=== PATIENT | female | born 1965 | race Caucasian/White ===

== ENCOUNTER 2016-10-02 22:45 | Inpatient (IN) | payer OTHER ==
[~2016-10-02] VITALS: Ht 170.2 cm; Wt 76.0 kg
--- NOTE | 2016-10-02 22:48 | NUR ---
YUNIOR RAMSEY. TAKEN TO BED 1
[2016-10-02 23:00] VITALS: BP 145/102
--- NOTE | 2016-10-02 23:13 | NUR ---
PATIENT IGGY PRESENTS TO ED WITH AH . PT STATES SHE HAS NO DESIRE TO AND HAS A HX OF HEP C, CIRRHOSIS, AND DM. PT REPORTS BEING IN REHAB X3WKS FOR ETOH AND METH . DENIES N/V/D; SKIN IS PINK/WARM/DRY; AAOX4 WITH EVEN AND STEADY GAIT; LUNGS CLEAR BL; HR EVEN AND REGULAR; PT DENIES ANY FEVER, CP, SOB, OR COUGH AT THIS TIME; PATIENT STATES PAIN OF 8/10 AT THIS TIME; VSS; PATIENT POSITIONED FOR COMFORT; HOB ELEVATED; BEDRAILS UP X2; BED DOWN. ER MD MADE AWARE OF PT STATUS.
--- NOTE | 2016-10-02 23:20 | NUR ---
Dr. Michaud evaluating patient at bedside.
[2016-10-02] MEDS ORDERED: LORazepam 2 MG/ML VIAL IVP ONE (23:35)
[2016-10-02] MEDS ORDERED: MULTIVITAMIN-12 10 ML, THIAMINE 100 MG, MAGNESIUM SULFATE 50% 2,000 MG, FOLIC ACID 5 MG... IV ONE (23:35)
[2016-10-02] MEDS ORDERED: THIAMINE 200 MG/2 ML VIAL ONE (23:45)
[2016-10-02] MEDS ORDERED: MAGNESIUM SULFATE 50% 1000 MG/2 ML VIAL IV ONE (23:45)
[2016-10-02] MEDS ORDERED: FOLIC ACID 5 MG/ML SYR ONE (23:45)
[2016-10-02] MEDS ORDERED: MULTIVITAMIN-12 10 ML VIAL IV ONE (23:45)
[2016-10-03] VITALS (12 sets, daily range): BP systolic 130–180; BP diastolic 75–113
[2016-10-03] MEDS ORDERED: ONDANSETRON 4 MG/2 ML VIAL IVP PRN ×2 (00:10→08:50)
--- NOTE | 2016-10-03 00:28 | NUR ---
X-Ray at bedside.
[2016-10-03] MEDS ORDERED: LACTULOSE10 GM/15 M PO (00:38)
[2016-10-03] MEDS ORDERED: GABAPENTIN300 M3 PO (00:38)
[2016-10-03] MEDS ORDERED: TRAZODONE150 M1 PO (00:38)
[2016-10-03] MEDS ORDERED: MULTI-VITAMIN1 EACH PO (00:38)
[2016-10-03] MEDS ORDERED: B COMPLETE1 EACH PO (00:38)
[2016-10-03] MEDS ORDERED: ECHINACEA HERB380 MG PO (00:38)
--- NOTE | 2016-10-03 00:56 | NUR ---
TRANSPORT HELD VIA HOUSE SUP DUE TO ICU ON-CALL NURSE NOT PRESENT YET. SPOKE WITH ICU NURSE WHO STATED THE ON-CALL NURSE WOULD CALL WHEN SHE HAS ARRIVED
--- NOTE | 2016-10-03 01:40 | NUR ---
PATIENT NOTED TO HAVE REDNESS ON RIGHT KNEE AND SLIGHT BRUISING ON RIGHT LATERAL LEGT JUST A LITTLE ABOVE THE KNEE, ASKED PATIENT HOW DID SHE OBTAINED ABRASION ON LEFT KNEE, PATIENT STATED "I DONT KNOW".
--- NOTE | 2016-10-03 01:40 | NUR ---
PATIENT ADMITTED FROM ED FOR ALCOHOL WITHDRAWAL. PATIENT IS AWAKE, ALERT, KNOWS HER NAME BUT NOTICE TALKING TO SOMEBODY NOT PRESENT AT BEDSIDE. SR ON THE MONITOR, ON ROOM AIR, RESPIRATIONS NORMAL, WITH IV SITE ON LEFT WRIST G#22, ON BANANA BAG AT 250 MLS/HR. SKIN ASSESSMENT DONE AND HAS ABRASION ON LEFT KNEE. PATIENT NOTED ANXIOUS, STATING SHE WANTS TO GO BACK HOME AND LIVES [place] WITH [place]IM[place]. TRIED TO DIVERT PATIENT'S ATTENTION BY TURNING ON TV FOR HER TO WATCH BUT PATIENT TRIED TO GET OUT OF BED, SECURITY CALLED FOR ASSISTANCE.
--- NOTE | 2016-10-03 01:42 | NUR ---
Patient will be admitted to care of DR. PRATER. Admited to ICU. Will go to room 5. Belongings list completed. Report to BRET VALLE. TRANSFER OF CARE AT THIS TIME
[2016-10-03] MEDS: LORazepam 2 MG/ML VIAL IVP PRN ×9 (02:10→21:02)
--- NOTE | 2016-10-03 02:10 | NUR ---
PATIENT CALLING OUT FOR HER DOG SMOKY AND CALLING HER DAD, TRIED TO CALM PATIENT BUT SHE WANTED TO GET OUT OF BED AND TRIED TO KICK STAFF, ATIVAN 2 MG IVP GIVEN.
--- NOTE | 2016-10-03 02:50 | NUR ---
PATIENT GETTING MORE AGITATED, TRIED TO BITE THE SECURITY AND TRIED TO KICK STAFF. PATIENT STILL TRYING TO GET OUT OF BED AND STARTED SCREAMING, ATIVAN 2 MG IVP GIVEN.
--- NOTE | 2016-10-03 03:27 | NUR ---
PATIENT STILL ANXIOUS/AGITATED, TALKING TO "ERIC", "EMIL" AND CALLING HER DAD AND DOG, ON AND OFF PATIENT WILL BE CRYING, ASKED PATIENT WHAT CAN WE DO TO HELP HER BUT SHE CANT STATES ANYTHING OTHER THAN CONTINUE TALKING TO PEOPLE NOT PRESENT AT BEDSIDE.
--- NOTE | 2016-10-03 04:00 | NUR ---
PATIENT STILL AGITATED, CALLING NAMES AND TALKING TO THEM, OFTEN TIMES TALKING TO HER DAD, CRYING ON AND OFF AND TRIED TO GET OUT OF BED, STAYED AT PATIENT'S BEDSIDE TO PREVENT FROM FALL OR INJURY, JUICE AND WATER GIVEN.
--- NOTE | 2016-10-03 05:14 | NUR ---
PATIENT CONSTANTLY TALKING TO HERSELF, SOMETIMES SHE SCREAMS AND TRIES TO GET OUT OF BED, STAYS AT PATIENT BEDSIDE TO SECURE PATIENT'S SAFETY, DENIES PAIN.
--- NOTE | 2016-10-03 06:34 | NUR ---
PATIENT PULLED OUT IV ON LEFT WRIST AT AROUND 0600, NEW IV SITE PLACED ON RFA G#22 WITH GOOD BLOOD RETURN. BED BATH AND COMPLETE LINEN CHANGED DONE, PATIENT VERY AGITATED, YELLING AND CALLING HER DAD, TRIED TO GET OUT OF BED AN D TRIED TO KICK STAFF, BILATERAL SOFT WRIST RESTRAINTS INITIATED, PAGED DR. PRATER TO OBTAINED ORDER FOR RESTRAINTS.
--- NOTE | 2016-10-03 06:49 | NUR ---
DR. PRATER CALLED BACK, SPOKE WITH ENEIDA, ICU ACETYLENE TORCH BURNER, RESTRAINTS ORDER (BILATERAL SOFT) OBTAINED.
--- NOTE | 2016-10-03 06:55 | NUR ---
ENEIDA, ICU FAMILY AND MARRIAGE COUNSELLOR CALLED KAREN BRANCH (DAUGHTER) AT [phone], LEFT MESSAGE REGARDING BILATERAL SOFT WRIST RESTRAINTS APPLIED.
--- NOTE | 2016-10-03 07:30 | NUR ---
RECEIVED PATIENT ON BED.INITIAL ASSESSMENT DONE TO PATIENT.PATIENT WITH RIGHT FOREARM 22 GAUGE PIV -BANANA BAG.PT IS ALERT TO PERSON AND KNOWS IT IS SEPTEMBER.NO CO PAIN.NSR ON THE MONITOR.
[2016-10-03] MEDS ORDERED: MULTIVITAMIN-12 10 ML, THIAMINE 100 MG, MAGNESIUM SULFATE 50% 2,000 MG, FOLIC ACID 5 MG... IV SCH (08:14)
[2016-10-03] MEDS: ENOXAPARIN 40 MG/0.4 ML SYR SUBQ SCH (08:16)
[2016-10-03] MEDS ORDERED: AMMONIA AROMATIC 1 INHL INH SCH (08:44)
[2016-10-03] MEDS ORDERED: guaiFENesin DM 200/20 MG-10 ML 10 ML UDC PO PRN (08:50)
[2016-10-03] MEDS ORDERED: BISACODYL 10 MG SUPP RC PRN (08:50)
[2016-10-03] MEDS ORDERED: ACETAMINOPHEN 325 MG TAB PO PRN (08:50)
[2016-10-03] MEDS ORDERED: MAGNESIUM OXIDE 400 MG TAB PO PRN (08:50)
[2016-10-03] MEDS ORDERED: POTASSIUM CHLORIDE 40 MEQ, LIDOCAINE 1% 25 MG in NACL 0.9% 250 ML IV PRN (08:50)
[2016-10-03] MEDS ORDERED: DOCUSATE SODIUM 250 MG GELCAP PO PRN (08:50)
[2016-10-03] MEDS ORDERED: MORPHINE SULFATE 2 MG/ML SYR IVP PRN (08:50)
[2016-10-03] MEDS ORDERED: ZOLPIDEM 5 MG TAB PO PRN (08:50)
[2016-10-03] MEDS ORDERED: ALUMINUM HYD/MAG/SIMETHICONE 30 ML UDC PO PRN (08:50)
[2016-10-03] MEDS ORDERED: POTASSIUM CHLORIDE 10 MEQ TABER PO PRN (08:50)
[2016-10-03] MEDS ORDERED: HYDROcodone/APAP 5/325 MG 1 TAB TAB PO PRN ×2 (08:50)
[2016-10-03] MEDS ORDERED: MAG SULF 2000 MG/WATER PREMIX 50 ML IV PRN (08:50)
[2016-10-03] MEDS ORDERED: IPRATROPIUM 0.02% 0.5 MG/2.5 ML NEBU INH PRN (08:50)
[2016-10-03] MEDS ORDERED: SODIUM PHOSPHATE 118 ML ENEM RC PRN (08:50)
[2016-10-03] MEDS ORDERED: diphenhydrAMINE 50 MG/ML VIAL IVP PRN (08:50)
[2016-10-03] MEDS ORDERED: ACETAMINOPHEN 650 MG SUPP RC PRN (08:50)
[2016-10-03] MEDS ORDERED: cloNIDine 0.1 MG TAB PO PRN (08:50)
[2016-10-03] MEDS ORDERED: ALBUTEROL 0.083% 2.5 MG/3 ML NEBU INH PRN (08:50)
[2016-10-03] MEDS ORDERED: LORazepam 2 MG/ML VIAL IVP PRN (08:50)
[2016-10-03] MEDS ORDERED: LACTULOSE 20 GM/30 ML UDC PO SCH (09:00)
[2016-10-03] MEDS: LACTULOSE 20 GM/30 ML UDC PO SCH ×2 (09:29→21:02)
[2016-10-03] MEDS: DEXT 5% /NACL 0.9% 1,000 ML IV SCH (09:38)
[2016-10-03] MEDS: cloNIDine 0.1 MG TAB PO SCH ×2 (13:00→17:07)
--- NOTE | 2016-10-03 13:34 | NUR ---
PT SLEEPY DUE TO ATIVAN SO MEDS WAS NOT GIVEN
[2016-10-03] MEDS ORDERED: PROBIOTIC SCREEN 1 EA MISC MC PRN (15:00)
[2016-10-03] MEDS ORDERED: MAG SULF 2000 MG/WATER PREMIX 50 ML IV SCH (18:00)
--- NOTE | 2016-10-03 18:49 | NUR ---
PT BECOMES AGITATED AND GETS OUT OF BED ESPECIALLY WHEN RESRAINTS ARE RELEASED.
--- NOTE | 2016-10-03 19:15 | NUR ---
RECEIVED REPORT FROM BRET WELLS AT BEDSIDE, PATIENT IS LYING IN BED, ALERT, AWAKE, ORIENTED X1, AGITATED, CONFUSED, ON SOFT RESTRAIN ON BOTH WRISTS. REORIENTED PATIENT OF SITUATION AND PLACE, THE REASON OF RESTRAIN, PATIENT CALM DOWN. DENIES PAIN, NO SOB OR ACUTE DISTRESS NOTED, BREATHING EVEN AND UNLABORED, CLEAR LUNG SOUNDS, SR ON MONITOR, POSITIVE BOWL SOUNDS, AFEBRILE, SKIN IS WARM AND DRY TO TOUCH, ABRASION NOTED ON LEFT KNEE, (SEE WOUND ASSESSMENT), IV SITE ON RIGHT FOREARM 22GA RUNNING WITH D5NS AT 60ML/HR. SAFETY CHECKED, PROVIDED COMFORT POSITIONING, WILL CONTINUE TO MONITOR.
--- NOTE | 2016-10-03 19:15 | NUR ---
REPORT GIVEN TO [facility] FOR CONTINUITY OF CARE
--- NOTE | 2016-10-03 21:00 | NUR ---
SCHEDULED MEDICATION GIVEN, PATIENT TOLERATED WELL.
--- NOTE | 2016-10-03 22:00 | NUR ---
PATIENT HAD ONE INCONTINENT URINATION, KATHLEEN CARE PROVIDED. POSITION CHANGED FOR OFF LOAD PRESSURE.
[2016-10-04] VITALS (9 sets, daily range): BP systolic 126–150; BP diastolic 74–98
--- NOTE | 2016-10-04 | NUR ---
PATIENT IS MORE ALERT, ABLE TO STATE HER NAME AND DATE OF , REORIENTED TIME AND PLACE TO PATIENT, INCONTINENT URINATION X1, KATHLEEN CARE PROVIDED TO KEEP PATIENT CLEAN AND DRY. POSITION CHANGED FOR OFF LOAD PRESSURE.
[2016-10-04] MEDS: DEXT 5% /NACL 0.9% 1,000 ML IV SCH (01:20)
--- NOTE | 2016-10-04 02:00 | NUR ---
PATIENT USED BEDPAN, KATHLEEN CARE PROVIDED, POSITION CHANGED FOR OFF LOAD PRESSURE.
--- NOTE | 2016-10-04 04:00 | NUR ---
PATIENT IS MORE ALERT, ORIENTED X3, NOT AGITATED, RESTRAINS REMOVED AT THIS TIME, WILL CONTINUE TO MONITOR.
[2016-10-04] MEDS: cloNIDine 0.1 MG TAB PO SCH ×2 (04:57→13:34)
--- NOTE | 2016-10-04 06:00 | NUR ---
AM CARE PROVIDED, PATIENT ABLE TO REPOSITION SELF IN BED AT THIS TIME.
--- NOTE | 2016-10-04 07:15 | NUR ---
REPORT GIVEN TO BRET GOODE. FOR CONTINUE OF CARE.
--- NOTE | 2016-10-04 07:16 | NUR ---
RECEIVED REPORT FROM BRET HOLT. PT IS SLEEPING BUT EASILY AWAKEN, AAO X3, IV ON RIGHT FA 22G PATENT AND INTACT INFUSING D5NS @ 60 ML/HR, HAS LEFT KNEE ABRASION, COMPOSITE DRESSING ON LEFT ELBOW WITH BLANCHABLE REDNESS NOTED, NO S/S OF RESPIRATORY DISTRESS NOTED, SR ON MONITOR, WITH EVEN AND UNLABORED BREATHING, CLEAR LUNG SOUNDS AUSCULTATED, ACTIVE BOWEL SOUNDS NOTED, ABLE TO REPOSITION SELF, ABLE TO MOVE ALL EXTREMITIES, ASSISTED PT TO BEDPAN WITH MODERATE AMOUNT OF CLEAR YELLOW URINE NOTED, DISCUSSED PLAN OF CARE, PT VERBALIZED UNDERSTANDING, SAFETY/FALL PRECAUTION ENFORCED, CALL LIGHT WITHIN REACH, WILL CONTINUE TO MONITOR.
--- NOTE | 2016-10-04 09:02 | NUR ---
PATIENT HAS BEEN SCREENED AND CATEGORIZED MODERATE NUTRITION RISK. PATIENT WILL BE SEEN WITHIN 3-5 DAYS OF ADMISSION. 10/05/16-10/07/[address]
--- NOTE | 2016-10-04 09:15 | NUR ---
PAGED DR. PRATER. AWAITING FOR CALL BACK.
--- NOTE | 2016-10-04 09:37 | NUR ---
PAGED DR. PRATER REGARDING CRITICAL LAB: MRSA NARES. AWAITING CALLBACK.
--- NOTE | 2016-10-04 09:39 | NUR ---
RECEIVED CALLBACK FROM DR. PRATER. NEW ORDERS RECEIVED
[2016-10-04] MEDS: LACTULOSE 20 GM/30 ML UDC PO SCH (09:49)
[2016-10-04] MEDS: ENOXAPARIN 40 MG/0.4 ML SYR SUBQ SCH (09:53)
--- NOTE | 2016-10-04 09:55 | NUR ---
DUE MEDS GIVEN, PT TOLERATED WELL, ASSISTED PT TO EAT BREAKFAST, PT HAS GOOD APPETITE, ALL NEEDS MET AT THIS TIME, WILL CONTINUE TO MONITOR.
--- NOTE | 2016-10-04 10:15 | NUR ---
PAGED DR. PRATER. AWAITING FOR CALL BACK.
--- NOTE | 2016-10-04 10:26 | NUR ---
SS NOTE: I SPOKE TO MATTIE AT [facility] ([phone]), SHE STATED THAT THEY ARE ABLE TO ACCEPT PT BACK AND CAN SEND THEIR CERTIFIED HOME HEALTH AIDE TODAY. SHE ALSO STATED THAT THEY WOULD ONLY REQUIRE PT'S DISCHARGE PAPERWORK IN ORDER TO RE-ADMIT PT IN THEIR PROGRAM. BRET GOODE MADE AWARE.
[2016-10-04] MEDS ORDERED: CHLORHEXADINE GLUC 2% CLOTH TP SCH (11:00)
[2016-10-04] MEDS ORDERED: MUPIROCIN 2% OINT 22 GM TUBE TP SCH (11:00)
--- NOTE | 2016-10-04 11:21 | NUR ---
DUE MEDS GIVEN, PT TOLERATED WELL, ALL NEEDS MET AT THIS TIME, PT IS SLEEPING COMFORTABLY, NO S/S OF RESPIRATORY DISTRESS OR DISCOMFORT NOTED, .
--- NOTE | 2016-10-04 11:35 | NUR ---
ASSISTED PT TO BEDPAN, PT HAD 150 ML OF CLEAR YELLOW URINE. KEPT PT CLEAN AND DRY, WILL CONTINUE TO MONITOR.
--- NOTE | 2016-10-04 12:13 | NUR ---
PAGED DR. PRATER. AWATING FOR CALL BACK.
--- NOTE | 2016-10-04 12:16 | NUR ---
SPOKE TO DR. PRATER, STATED THAT HE NEEDS TO SEE PT FIRST. DR. PRATER SAID HE WILL SEE THE PT AT 1400.
--- NOTE | 2016-10-04 13:50 | NUR ---
DR. PRATER IS IN TO SEE THE PT. WILL FOLLOW UP WITH NEW ORDERS.
--- NOTE | 2016-10-04 14:38 | NUR ---
SS NOTE: PER MATTIE FROM [facility], THEIR BEATER TENDER, CONY WILL BE BY THE FRONT LOBBY TO TUBE DRAW HELPER PT AT 1530 TO RETURN HER TO REHAB. TECHNICAL SERVICES SPECIALISTBRET MELENDREZ.
--- NOTE | 2016-10-04 15:30 | NUR ---
DISCHARGE INSTRUCTIONS GIVEN, PT VERBALIZED UNDERSTANDING, REMOVE ID WRISTBAND, IV, CATHETER TIP INTACT, WHEELED PT OUT OF THE UNIT, AND PICKED UP BY TRANSPORTER. PT STABLE UPON DISCHARGE.
--- NOTE | 2016-10-04 15:44 | NUR ---
CM NOTE PER SENIOR MAJOR GIFTS OFFICER KRUNAL EXT [phone], REVIEWS SHOULD BE SENT TO BOTH [facility] AND [facility]. SENT REVIEW TO [facility] FAX# [phone] [place]; [place] PH# [phone] AND TO [facility] FAX# [phone] PH# [place] [phone]
== END 2016-10-04 15:30 | DRG 775 ==
LOC: MED 22:45 → MIC 10-03 00:17
PROVIDERS: ADMIT Internal Medicine Pulmonary Disease; ATTEND Internal Medicine Pulmonary Disease
DX: F10.231 Alcohol dependence with withdrawal delirium (principal); G93.40 Encephalopathy, unspecified; K74.60 Unspecified cirrhosis of liver; K72.90 Hepatic failure, unspecified without coma; I10 Essential (primary) hypertension; E11.9 Type 2 diabetes mellitus without complications; B19.20 Unspecified viral hepatitis C without hepatic coma; F15.10 Other stimulant abuse, uncomplicated; F17.210 Nicotine dependence, cigarettes, uncomplicated; Y90.7 Blood alcohol level of 200-239 mg/100 ml